=== PATIENT | male | born 1940 | race Caucasian/White ===

== ENCOUNTER 2016-11-10 07:12 | Emergency (ER) | payer MEDICARE, BC ==
[~2016-11-10] VITALS: Ht 182.9 cm; Wt 90.0 kg
[2016-11-10 07:13] VITALS: BP 158/86; PULSE 57; RESP 20; TEMP 97.5; O2SAT 96
[2016-11-10 07:25] VITALS: BP 165/92; PULSE 56; RESP 14; TEMP 98; O2SAT 100
[2016-11-10 07:30] VITALS: RESP 16; O2SAT 98
[2016-11-10] MEDS ORDERED: SODIUM CHLORIDE 0.9% FLUSH 10 ML FLUSH IVF PRN (07:30)
--- NOTE | 2016-11-10 07:33 | PD ---
HPI Chief Complaint: Chest Pain Time Seen by Provider: 07:21 Travel History International Travel<30 days: No Contact w/Intl Traveler<30days: No Traveled to known affect area: No History of Present Illness HPI This patient complains of chest pain. Location is low center sternum. Started at 6:50 AM this morning. It lasted approximately 10 minutes and resolved. No alleviating factors. He did take an aspirin prior to arrival. He has no history of cardiac disease. He had a stress test many many years ago but nothing recent. Symptoms were not exertional. Floyd like an aching pain. He is currently pain-free. Severity was moderate. [facility] Social History Alcohol Use: No Tobacco Use: No Substance Use: No Allergies-Medications (Allergen,Severity, Reaction): Coded Allergies: Shrimp (Verified Allergy, Severe, Anaphylaxis, 11/10/16) Reported Meds & Prescriptions Reported Meds & Active Scripts Active No Active Prescriptions or Reported Medications Review of Systems General / Constitutional: No: Fever Eyes: No: Visual changes HENT: No: Headaches Cardiovascular: Positive: Chest Pain or Discomfort Respiratory: No: Shortness of Breath Gastrointestinal: No: Abdominal Pain Genitourinary: No: Dysuria Musculoskeletal: No: Pain Skin: No Rash Neurologic: No: Weakness Psychiatric: No: Depression Endocrine: No: Polydipsia Hematologic/Lymphatic: No: Easy Bruising Physical Exam Narrative GENERAL: Well-nourished, well-developed patient in no apparent distress. SKIN: Focused skin assessment reveals no rash and nodules. Skin is Warm and dry. HEAD: Atraumatic. Normocephalic. EYES: Pupils equal and round. No scleral icterus. No injection or drainage. ENT: No nasal bleeding or discharge. Mucous membranes pink and moist. NECK: Trachea midline. No JVD. CARDIOVASCULAR: Regular rate and rhythm. No murmur appreciated. RESPIRATORY: No accessory muscle use. Clear to auscultation. Breath sounds equal bilaterally. GASTROINTESTINAL: Abdomen soft, non-tender, nondistended. Hepatic and splenic margins not palpable. MUSCULOSKELETAL: No obvious deformities. No clubbing. No cyanosis. No edema. No chest wall tenderness NEUROLOGICAL: Awake and alert. No obvious cranial nerve deficits. Motor grossly within normal limits. Normal speech. PSYCHIATRIC: Appropriate mood and affect; insight and judgment normal. Data Data Last Documented VS Vital Signs Date Time Temp Pulse Resp B/P Pulse Ox O2 Delivery O2 Flow Rate FiO2 11/10/16 07:30 16 98 Room Air 11/10/16 07:30 2 11/10/16 07:25 98.0 56 165/92 Orders Electrocardiogram (11/10/16 ) Electrocardiogram (11/10/16 07:28) Basic Metabolic Panel (Bmp) (11/10/16 07:28) Ckmb (Isoenzyme) Profile (11/10/16 07:28) Complete Blood Count With Diff (11/10/16:28) Prothrombin Time / Inr (Pt) (11/10/16:28) Act Partial Throm Time (Ptt) (11/10/16:28) Troponin I (11/10/16:28) Chest, Single Ap (11/10/16:28) Ecg Monitoring (11/10/16:28) Iv Access Insert/Monitor (11/10/16:) Oximetry (11/10/16 07:28) Sodium Chloride 0.9% Flush (Ns Flush) (11/10/16 07:30) CKMB (11/10/16 07:30) CKMB% (11/10/16 07:30) Labs Laboratory Tests Test 11/10/16 07:30 White Blood Count 6.3 TH/MM3 Red Blood Count 4.80 MIL/MM3 Hemoglobin 14.8 GM/DL Hematocrit 44.5 % Mean Corpuscular Volume 92.6 FL Mean Corpuscular Hemoglobin 30.8 PG Mean Corpuscular Hemoglobin 33.2 % Concent Red Cell Distribution Width 14.2 % Platelet Count 245 TH/MM3 Mean Platelet Volume 7.4 FL Neutrophils (%) (Auto) 68.2 % Lymphocytes (%) (Auto) 20.2 % Monocytes (%) (Auto) 8.3 % Eosinophils (%) (Auto) 2.7 % Basophils (%) (Auto) 0.6 % Neutrophils # (Auto) 4.3 TH/MM3 Lymphocytes # (Auto) 1.3 TH/MM3 Monocytes # (Auto) 0.5 TH/MM3 Eosinophils # (Auto) 0.2 TH/MM3 Basophils # (Auto) 0.0 TH/MM3 CBC Comment DIFF FINAL Differential Comment Prothrombin Time 10.9 SEC Prothromb Time International 1.0 RATIO Ratio Activated Partial 26.2 SEC Thromboplast Time Sodium Level 141 MEQ/L Potassium Level 4.1 MEQ/L Chloride Level 107 MEQ/L Carbon Dioxide Level 24.6 MEQ/L Anion Gap 9 MEQ/L Blood Urea Nitrogen 22 MG/DL Creatinine 0.98 MG/DL Estimat Glomerular Filtration 75 ML/MIN Rate Random Glucose 111 MG/DL Calcium Level 8.5 MG/DL Total Creatine Kinase 115 U/L Creatine Kinase MB 1.5 NG/ML Troponin I 0.02 NG/ML MDM Medical Decision Making Medical Screen Exam Complete: Yes Emergency Medical Condition: Yes Medical Record Reviewed: Yes Differential Diagnosis Differential diagnosis includes MO, angina, pericarditis, pleurisy, GERD, anxiety. Narrative Course I have reviewed the patient's electronic medical record. IV placed I reviewed the EKG which shows sinus rhythm and no ST elevation or ectopy I reviewed the chest x-ray shows sinus rhythm without ectopy Extended cardiac monitoring shows sinus rhythm without ectopy CBC is normal Metabolic profile is normal CK is normal Troponin is normal Coagulation studies are normal ER workup is negative and patient is a 76-year-old with suspicious chest symptoms. I recommended telemetry observation in the hospital to rule out cardiac cause of his symptoms. He has thought about this and declined my recommendation. He will sign out AGAINST MEDICAL ADVICE. I've advised him to return if he worsens or changes his mind. I've answered all of his questions. Diagnosis Primary Impression: Chest pain in adult Scripts No Active Prescriptions or Reported Meds Disposition: 07 AGAINST MEDICAL ADVICE Jose R Bae MD Nov 10, 2016 07:33
--- NOTE | 2016-11-10 07:49 | RADRPT ---
EXAM DATE/TIME: 11/10/2016 07:26 [place] COMPARISON: No previous studies available for comparison. INDICATIONS : Chest Pain MEDICAL HISTORY : None. SURGICAL HISTORY : None. ENCOUNTER: Initial ACUITY: 1 day PAIN SCORE: 7/10 LOCATION: Bilateral chest FINDINGS: A single view of the chest demonstrates the lungs to be symmetrically aerated without evidence of mas s, infiltrate or effusion. The cardiomediastinal contours are unremarkable. Osseous structures are intact. CONCLUSION: No acute disease. David Prater MD on November 10, 2016 at 7:47 Board Certified Radiologist. This report was verified electronically.
[2016-11-10 07:52] LABS: AUTOMATED NEUTROPHIL # 4.3 TH/MM3 (1.8-7.7); BASOPHIL % 0.6 % (0.0-2.0); EOSINOPHIL # 0.2 TH/MM3 (0-0.4); EOSINOPHIL % 2.7 % (0.0-4.0); HEMATOCRIT 44.5 % (39.0-51.0); HEMO FLAGS DIFF FINAL; LYMPH % 20.2 % (9.0-44.0); LYMPHOCYTE # 1.3 TH/MM3 (1.0-4.8); MEAN CELL VOLUME 92.6 FL (80.0-100.0); MEAN CORPUSCULAR HEMOGLOBIN 30.8 PG (27.0-34.0); MEAN CORPUSCULAR HGB CONC 33.2 % (32.0-36.0); MONO % 8.3 % (0.0-8.0); NEUT % 68.2 % (16.0-70.0); PLATELET COUNT 245 TH/MM3 (150-450); RED CELL DISTRIBUTION WIDTH 14.2 % (11.6-17.2); WHITE BLOOD COUNT 6.3 TH/MM3 (4.0-11.0)
[2016-11-10 08:07] LABS: ANION GAP 9 MEQ/L (5-15); APTT (PATIENT) 26.2 SEC (24.3-30.1); BICARBONATE 24.6 MEQ/L (21.0-32.0); BLOOD UREA NITROGEN 22 MG/DL (7-18); CHLORIDE 107 MEQ/L (98-107); GLOMERULAR FILTRATION RATE 75 ML/MIN (>89); POTASSIUM 4.1 MEQ/L (3.5-5.1); PROTHROMBIN TIME - PATIENT 10.9 SEC (9.8-11.6); SODIUM (NA) 141 MEQ/L (136-145)
[2016-11-10 08:10] LABS: CREATINE KINASE 115 U/L (39-308)
[2016-11-10 08:23] LABS: CKMB 1.5 NG/ML (0.5-3.6)
== END 2016-11-10 09:26 | disposition left against medical advice (07) ==
LOC: NEPE 07:12
DX: R07.9 Chest pain, unspecified (principal)
CPT/HCPCS: 71010; 80048; 82550; 82552; 84484; 85025; 85610; 85730; 99285